=== PATIENT | male | born 1945 | race Caucasian/White ===

== ENCOUNTER → 2016-09-22 | Day surgery (SDC) | payer OTHER, MEDICARE ==
[~2016-09-22] VITALS: Ht 177.8 cm; Wt 87.2 kg
[~2016-09-22] MED LIST: ALLOPURINOL300 MG PO; ASPIRIN EC81 MG PO; CORDARONE,PACE200 MG PO; COREG6.25 MG PO; ENTRESTO 49 MG1 EACH PO; FLONASE 50 MCG/16 GM NOSE; LASIX40 MG PO; MAGNESIUM400 M1 PO; TESTOSTERO200 MG/11 IM; TYLENOL325 MG PO; VITAMIN B-12500 MCG PO; VITAMIN B125000 MCG PO; ZOCOR20 MG PO
== END ==
LOC: GPOC 09-17 16:00 → GEND 08:42 → GPOC 09:00
PROC: 0DJD8ZZ Inspection of Lower Intestinal Tract, Via Natural or Artificial Opening Endoscopic (ICD-10-PCS; principal; 2016-09-22)
DX: Z12.11 Encounter for screening for malignant neoplasm of colon (principal); K57.30 Diverticulosis of large intestine without perforation or abscess without bleeding; I25.10 Atherosclerotic heart disease of native coronary artery without angina pectoris; I25.5 Ischemic cardiomyopathy; I10 Essential (primary) hypertension; M10.9 Gout, unspecified; M19.90 Unspecified osteoarthritis, unspecified site; Z79.82 Long term (current) use of aspirin; Z79.51 Long term (current) use of inhaled steroids; Z79.899 Other long term (current) drug therapy
CPT/HCPCS: J2001; J7030

== ENCOUNTER → 2017-01-29 | Outpatient (CLI) | payer OTHER, MEDICARE ==
--- NOTE | ~2017-01-29 | PUL ---
PATIENT'S NAME: IMELDA OGLESBY [facility] AGE: 71 Y [address] ROOM: [place] [id number] LOCATION: [facility] ADMIT DATE: 01/29/2017 Pulmonary DISCHARGE DATE: FAMILY PHYSICIAN: Len Vieyra MD ATTENDING PHYSICIAN: Dillon Philip NAME OF PROCEDURE: Pulmonary Function Test DATE OF PROCEDURE: January 29, 2017 TECH: VERITO Mcdowell REASON FOR EXAM: High risk medication RESULTS: 1. FVC was 3.13 liters which is 70% of predicted and low, FEV1 was 2.3 liters which is 70% of predicted and low, and FEV1/FVC was 73% and normal for patient demographics. The flow volume curve did not reveal any significant airflow limitation. After bronchodilator administration FVC increased to 3.34 liters which is a 7% increase, and FEV1 increased to 2.49 liters which is an 8% increase. FEV1/FVC. 2. DLCO and adjusted DLCO were 18 which is 77% of predicted and normal. 3. Total lung capacity was 5.5 liters which is 85% of predicted and normal, and residual volume was 2.2 liters which is 88% of predicted and normal. 4. PH was 7.45, PCO2 of 39, PO2 was 75 while on room air. The base excess was slightly elevated at 3. PHYSICIAN INTERPRETATION: The patient has no airflow limitation no significant bronchodilator response. His diffusion capacity is normal. There is no evidence of restrictive lung disease. He has very mild metabolic alkalosis with adequate respiratory compensation and no hypoxia at rest on room air. MD AZRA SANDERS/yang /[id number] dtt: 02/02/17 0913 , ADDI CHAVEZ dtd: 02/01/17 2200
[2017-01-29 15:43] LABS: BICARBONATE 27.1 mmol/L (18.0-23.0); PCO2 39 mmHg (35-45); PO2 75 mmHg (80-90)
== END | disposition disaster alternative care site (69) ==
LOC: GRES 01-23 10:04 → GRTH 01-28 13:00
PROVIDERS: Internal Medicine Critical Care Medicine
DX: Z51.81 Encounter for therapeutic drug level monitoring (principal); Z79.899 Other long term (current) drug therapy; E87.3 Alkalosis